=== PATIENT | male | born 1960 | race Two or more races ===

== ENCOUNTER 2017-09-15 22:55 | Emergency (ER) | payer MEDICAID, OTHER ==
[2017-09-16 00:01] LABS: ADD MAN DIFF? NO
[2017-09-16 00:04] LABS: BASOPHIL # 0.1 10^3/ul (0.0-0.1); BASOPHILS % 0.9 % (0.0-2.0); EOSINOPHILS # 0.2 10^3/ul (0.0-0.5); EOSINOPHILS % 3.5 % (0.0-7.0); HEMATOCRIT 44.6 % (42.0-52.0); HEMOGLOBIN 14.8 g/dl (14.0-18.0); LYMPHOCYTES # 2.9 10^3/ul (0.8-2.9); LYMPHOCYTES % 42.5 % (15.0-51.0); MEAN CORPUSCULAR HEMOGLOBIN 30.2 pg (29.0-33.0); MEAN CORPUSCULAR HGB CONC 33.2 g/dl (32.0-37.0); MONOCYTE # 0.7 10^3/ul (0.3-0.9); MONOCYTES % 9.5 % (0.0-11.0); NEUTROPHILS % 43.5 % (39.0-77.0); PLATELET COUNT 283 10^3/UL (140-415); RED CELL DISTRIBUTION WIDTH 13.6 % (11.5-14.5)
[2017-09-16 00:04] LABS: WHITE BLOOD COUNT 6.9 10^3/ul (4.8-10.8)
[2017-09-16 00:22] LABS: ALANINE AMINOTRANSFERASE 30 IU/L (13-69); ALBUMIN 4.1 g/dl (3.3-4.9); ALBUMIN/GLOBULIN RATIO 1.13; ALKALINE PHOSPHATASE 95 IU/L (42-121); ANION GAP 15 (8-16); ASPARTATE AMINO TRANSFERASE 28 IU/L (15-46); BILIRUBIN,INDIRECT 0.5 mg/dl (0-1.1); BILIRUBIN,TOTAL 0.5 mg/dl (0.2-1.3); BLOOD UREA NITROGEN 26 mg/dl (7-20); CALCIUM 9.3 mg/dl (8.4-10.2); CARBON DIOXIDE 26 mmol/L (21-31); CHLORIDE 107 mmol/L (97-110); CREATININE 1.06 mg/dl (0.61-1.24); GLUCOSE 123 mg/dl (70-220); LIPASE 305 U/L (23-300); POTASSIUM 3.9 mmol/L (3.5-5.1); SODIUM 144 mmol/L (135-144); TOTAL PROTEIN 7.7 g/dl (6.1-8.1)
[2017-09-16 00:23] LABS: INR 0.88; PT RATIO 0.9
[2017-09-16 00:24] LABS: PARTIAL THROMBOPLASTIN TIME 27.5 Sec (25.0-35.0)
[2017-09-16 00:34] LABS: B-TYPE NATRIURETIC PEPTIDE 46 PG/ML (0-125)
[2017-09-16 00:37] LABS: TROPONIN-I < 0.012 ng/ml (0.000-0.120)
[2017-09-16] MEDS: LORAZEPAM 2 MG INJ IV (00:48)
== END 2017-09-16 02:04 | disposition home or self-care (01) ==
LOC: E/R 09-16 02:04
DX: R07.89 Other chest pain (principal)
CPT/HCPCS: 36415; 71045; 80053; 83690; 83880; 84484; 85025; 85610; 85730; 93005; 96374; 99285-25

== ENCOUNTER 2017-10-10 | Emergency (ER) | payer MEDICAID ==
[2017-10-10] MEDS: ACETAMINOPHEN 325 MG TAB PO (01:28)
[2017-10-10 01:29] LABS: ADD MAN DIFF? NO
[2017-10-10] MEDS: SODIUM CHLORIDE 0.9% 1L BAG IV* (01:29)
[2017-10-10 01:30] LABS: BASOPHILS % 0.3 % (0.0-2.0); EOSINOPHILS # 0.4 10^3/ul (0.0-0.5); EOSINOPHILS % 4.8 % (0.0-7.0); HEMATOCRIT 42.1 % (42.0-52.0); HEMOGLOBIN 14.3 g/dl (14.0-18.0); LYMPHOCYTES # 1.5 10^3/ul (0.8-2.9); LYMPHOCYTES % 16.2 % (15.0-51.0); MEAN CORPUSCULAR HEMOGLOBIN 30.3 pg (29.0-33.0); MEAN CORPUSCULAR VOLUME 89.2 fl (82.0-101.0); MEAN PLATELET VOLUME 9.7 fl (7.4-10.4); MONOCYTE # 0.6 10^3/ul (0.3-0.9); MONOCYTES % 6.6 % (0.0-11.0); NEUTROPHIL # 6.4 10^3/ul (1.6-7.5); PLATELET COUNT 245 10^3/UL (140-415); RED BLOOD COUNT 4.72 10^6/ul (4.70-6.10); RED CELL DISTRIBUTION WIDTH 13.1 % (11.5-14.5)
[2017-10-10 01:35] LABS: URINE BLOOD (Dip) POC 1+ (NEGATIVE); URINE GLUCOSE (Dip) POC Negative (NEGATIVE); URINE KETONES (Dip) POC Negative (NEGATIVE); URINE LEUKOCYTE EST (Dip) POC Negative (NEGATIVE); URINE NITRITE (Dip) POC Negative (NEGATIVE); URINE TOTAL PROTEIN POC Negative (NEGATIVE)
[2017-10-10 01:50] LABS: INR 0.99; PROTIME 13.2 Sec (11.9-14.9)
[2017-10-10] MEDS: SOD CHLORIDE 0.9% IV (01:50)
[2017-10-10 01:51] LABS: ADD UMIC YES; PARTIAL THROMBOPLASTIN TIME 30.9 Sec (25.0-35.0); UR ASCORBIC ACID NEGATIVE (NEGATIVE); UR BILIRUBIN (Dip) NEGATIVE (NEGATIVE); UR BLOOD (Dip) 2+ mg/dL (NEGATIVE); UR CLARITY CLEAR (CLEAR); UR COLOR YELLOW (YELLOW); UR GLUCOSE (Dip) NEGATIVE (NEGATIVE); UR KETONES (Dip) NEGATIVE (NEGATIVE); UR LEUKOCYTE ESTERASE (Dip) NEGATIVE Leu/ul (NEGATIVE); UR NITRITE (Dip) NEGATIVE (NEGATIVE); UR RBC 3 /HPF (0-5); UR TOTAL PROTEIN (Dip) NEGATIVE (NEGATIVE); UR UROBILINOGEN (Dip) NEGATIVE (NEGATIVE); UR WBC 0 /HPF (0-5)
[2017-10-10 01:58] LABS: ALANINE AMINOTRANSFERASE 30 IU/L (13-69); ALBUMIN 4.4 g/dl (3.3-4.9); ALBUMIN/GLOBULIN RATIO 1.12; ALKALINE PHOSPHATASE 107 IU/L (42-121); ANION GAP 17 (8-16); ASPARTATE AMINO TRANSFERASE 30 IU/L (15-46); BILIRUBIN,INDIRECT 0.8 mg/dl (0-1.1); BILIRUBIN,TOTAL 0.8 mg/dl (0.2-1.3); BLOOD UREA NITROGEN 18 mg/dl (7-20); CALCIUM 8.8 mg/dl (8.4-10.2); CARBON DIOXIDE 25 mmol/L (21-31); CHLORIDE 101 mmol/L (97-110); CREATININE 1.15 mg/dl (0.61-1.24); GLUCOSE 111 mg/dl (70-220); SODIUM 139 mmol/L (135-144); TOTAL PROTEIN 8.3 g/dl (6.1-8.1)
[2017-10-10 01:59] LABS: LACTIC ACID 1.7 mmol/L (0.5-2.0)
[2017-10-10 02:12] LABS: TROPONIN-I < 0.012 ng/ml (0.000-0.120)
[2017-10-10 02:43] LABS: CREATINE KINASE 177 IU/L (23-200)
[2017-10-10] MEDS: IBUPROFEN 600 MG TAB PO (03:08)
== END 2017-10-10 03:24 | disposition home or self-care (01) ==
LOC: E/R
DX: L03.116 Cellulitis of left lower limb (principal); L03.115 Cellulitis of right lower limb; H57.8 Other specified disorders of eye and adnexa; R07.9 Chest pain, unspecified; R50.9 Fever, unspecified
CPT/HCPCS: 36415; 71045; 80053; 81001; 81003; 82550; 83605; 84484; 85025; 85610; 85730; 87040; 87086; 93005; 99285-25

== ENCOUNTER 2017-10-11 00:48 | Emergency (ER) | payer MEDICAID ==
[2017-10-11 02:31] LABS: ADD MAN DIFF? NO
[2017-10-11 02:34] LABS: WHITE BLOOD COUNT 7.6 10^3/ul (4.8-10.8)
[2017-10-11 02:34] LABS: BASOPHILS % 0.3 % (0.0-2.0); EOSINOPHILS # 0.7 10^3/ul (0.0-0.5); EOSINOPHILS % 9.2 % (0.0-7.0); HEMATOCRIT 39.7 % (42.0-52.0); HEMOGLOBIN 13.4 g/dl (14.0-18.0); LYMPHOCYTES # 0.8 10^3/ul (0.8-2.9); MEAN CORPUSCULAR HEMOGLOBIN 30.5 pg (29.0-33.0); MEAN CORPUSCULAR HGB CONC 33.8 g/dl (32.0-37.0); MEAN CORPUSCULAR VOLUME 90.2 fl (82.0-101.0); MONOCYTE # 0.3 10^3/ul (0.3-0.9); MONOCYTES % 3.8 % (0.0-11.0); NEUTROPHIL # 5.7 10^3/ul (1.6-7.5); NEUTROPHILS % 75.2 % (39.0-77.0); PLATELET COUNT 212 10^3/UL (140-415); RED CELL DISTRIBUTION WIDTH 13.3 % (11.5-14.5)
[2017-10-11 02:52] LABS: LACTIC ACID 0.9 mmol/L (0.5-2.0)
[2017-10-11 02:53] LABS: INR 0.98; PROTIME 13.1 Sec (11.9-14.9)
[2017-10-11 02:54] LABS: PARTIAL THROMBOPLASTIN TIME 33.9 Sec (25.0-35.0)
[2017-10-11 02:58] LABS: ALANINE AMINOTRANSFERASE 29 IU/L (13-69); ALBUMIN 3.7 g/dl (3.3-4.9); ALBUMIN/GLOBULIN RATIO 1.19; ALKALINE PHOSPHATASE 100 IU/L (42-121); ANION GAP 16 (8-16); ASPARTATE AMINO TRANSFERASE 35 IU/L (15-46); BILIRUBIN,INDIRECT 0.4 mg/dl (0-1.1); BILIRUBIN,TOTAL 0.4 mg/dl (0.2-1.3); BLOOD UREA NITROGEN 18 mg/dl (7-20); CALCIUM 8.6 mg/dl (8.4-10.2); CARBON DIOXIDE 23 mmol/L (21-31); CHLORIDE 102 mmol/L (97-110); CREATININE 1.05 mg/dl (0.61-1.24); GLUCOSE 110 mg/dl (70-220); POTASSIUM 3.6 mmol/L (3.5-5.1); SODIUM 137 mmol/L (135-144); TOTAL PROTEIN 6.8 g/dl (6.1-8.1)
[2017-10-11] MEDS: METHYLPREDNISOLONE 125 MG INJ IV (05:19)
[2017-10-11 06:02] LABS: LACTIC ACID 1.5 mmol/L (0.5-2.0)
== END 2017-10-11 06:55 | disposition home or self-care (01) ==
LOC: E/R 00:48
DX: R21 Rash and other nonspecific skin eruption (principal); R50.9 Fever, unspecified
CPT/HCPCS: 36415; 80053; 83605; 85025; 85610; 85730; 93005; 96374; 99284-25

== ENCOUNTER 2017-10-14 13:12 | Emergency (ER) | payer MEDICAID | END 2017-10-14 16:27 | disposition home or self-care (01) | LOC: FTE 13:12 | DX: I87.2 Venous insufficiency (chronic) (peripheral) (principal) | CPT/HCPCS: 99284; Z7502 ==